=== PATIENT | female | born 1965 | race Caucasian/White ===

== ENCOUNTER 2018-10-07 11:28 | Emergency (ER) | payer OTHER ==
[2018-10-07 11:34] VITALS: BMI 32.8
--- NOTE | 2018-10-07 11:52 | PDOC ---
History of Present Illness - General Chief Complaint: Lightheaded Stated Complaint: HEADACHE/ VOMITING/ DIZZNESS Time Seen by Provider: 10/07/18 11:40 History Source: Patient Exam Limitations: No Limitations Past History - Travel Traveled outside of the country in the last 30 days: No Close contact w/someone who was outside of country & ill: No - Past Medical History Allergies/Adverse Reactions: Allergies Allergy/AdvReac Type Severity Reaction Status Date / Time amoxicillin [Amoxicillin] Allergy Severe Swelling Verified 07/28/17 20:26 Home Medications: Ambulatory Orders Albuterol 0.083% Nebulizer Emhnaz [Ventolin 0.083% Nebulizer Soln -] 1 neb NEB Q4H PRN #20 vial 07/28/17 Azithromycin [Zithromax -] 250 mg PO UTDICT #6 tab 07/28/17 Duloxetine HCl 60 mg PO ASDIR 07/28/17 Pregabalin [Lyrica -] 100 mg PO TID 07/28/17 Quetiapine Fumarate [Seroquel -] 25 mg PO HS 07/28/17 Asthma: Yes Cancer: Yes (cervical) CVA: No COPD: No - Surgical History Cardiac Surgery: No Cholecystectomy: Yes Lung Surgery: No Neurologic Surgery: No - Reproductive History (#): 2 Para: 2 - Immunization History Immunization Up to Date: Yes - Suicide/Smoking/Psychosocial Hx Smoking Status: No Smoking History: Never smoked Have you smoked in the past 12 months: No Number of Cigarettes Smoked Daily: 0 Hx Alcohol Use: No Drug/Substance Use Hx: No Substance Use Type: None Hx Substance Use Treatment: No Review of Systems - Review of Systems Able to Perform ROS?: Yes Comments:: 10/07/18 11:54 CONSTITUTIONAL: Present: generalized weakness Absent: fever, chills, diaphoresis, malaise, loss of appetite HEENT: Absent: rhinorrhea, nasal congestion, throat pain, throat swelling, difficulty swallowing, mouth swelling, ear pain, eye pain, visual Changes CARDIOVASCULAR: Absent: chest pain, loss of consciousness, palpitations, irregular heart rate, peripheral edema RESPIRATORY: Absent: cough, shortness of breath, dyspnea with exertion, orthopnea, wheezing, stridor, hemoptysis GASTROINTESTINAL: Present: abdominal pain, nausea, vomiting, diarrhea Absent: abdominal distension, constipation, melena, hematochezia GENITOURINARY: Absent: dysuria, frequency, urgency, hesitancy, hematuria, flank pain, genital pain MUSCULOSKELETAL: Absent: myalgia, arthralgia, joint swelling SKIN: Absent: rash, itching, pallor HEMATOLOGIC/IMMUNOLOGIC: Absent: easy bleeding, easy bruising, lymphadenopathy, frequent infections ENDOCRINE: Absent: unexplained weight gain, unexplained weight loss, heat intolerance, cold intolerance NEUROLOGIC: Present: headache Absent: focal weakness or paresthesias, dizziness, unsteady gait, seizure, mental status changes, bladder or bowel incontinence PSYCHIATRIC: Absent: anxiety, depression, suicidal or homicidal ideation, hallucinations. Is the patient limited [place]ican proficient: No *Physical Exam - Vital Signs Last Vital Signs Temp Pulse Resp BP Pulse Ox 98.2 F 69 17 139/82 98 10/07/18 11:30 10/07/18 11:30 10/07/18 11:30 10/07/18 11:30 10/07/18 11:30 - Physical Exam Comments: 10/07/18 11:57 GENERAL: Well developed, well nourished. Awake and alert. No acute distress. HEENT: Normocephalic, atraumatic. PERRLA, EOMI. No conjunctival pallor. Sclera are non- icteric. Moist mucous membranes. Oropharynx is clear. NECK: Supple. Full ROM. No JVD. Carotid pulses 2+ and symmetric, without bruits. No thyromegaly. No lymphadenopathy. CARDIOVASCULAR: Regular rate and rhythm. No murmurs, rubs, or gallops. Distal pulses are 2+ and symmetric. PULMONARY: No evidence of respiratory distress. Lungs clear to auscultation bilaterally. No wheezing, rales or rhonchi. ABDOMINAL: Tender abdomen to the RUQ, epigastric region, suprapubic region. Soft. Non- distended. No rebound or guarding. No organomegaly. Normoactive bowel sounds. MUSCULOSKELETAL Normal range of motion at all joints. No bony deformities or tenderness. No CVA tenderness. EXTREMITIES: No cyanosis. No clubbing. No edema. No calf tenderness. SKIN: Warm and dry. Normal capillary refill. No rashes. No jaundice. NEUROLOGICAL: Alert, awake, appropriate. Cranial nerves 2-12 intact. No deficits to light touch and temperature in face, upper extremities and lower extremities. No motor deficits in the in face, upper extremities and lower extremities. Normoreflexic in the upper and lower extremities. Normal speech. Toes are down- going bilaterally. Gait is normal without ataxia. PSYCHIATRIC: Cooperative. Good eye contact. Appropriate mood and affect. ED Treatment Course - LABORATORY CBC & Chemistry Diagram: 10/07/18 12:30 10/07/18 14:00 Medical Decision Making - Medical Decision Making 10/07/18 15:21 The patient is a 52-year-old female with past medical history of reflux, hyperlipidemia, presents to the ER today for diarrhea, vomiting, abdominal pain and headache for the past 3 days. The patient states she recently just came back from [place]. She notes that she had the diarrhea while in [place] and it has continued over the past 3 days. She states that her headache started last night. She did not take any medication for her headache. She states she usually gets migraines and this feels like a typical migraine to her. She also states that she has some crampy abdominal pain as well as epigastric pain. Denies fevers, chills, shortness of breath, chest pain, constipation, palpitations, and urinary symptoms. A/P: Traveler's diarrhea and migraine On exam pt with diffuse abdominal tenderness with out focal findings. No rebound or guarding. Pt is neurologically intact with no focal findings EKG: Rate 62 BPM, NSR. Normal intervals and axis. No acute ST-T wave changes Basic labs, urine, IVF, Reglan, benadryl, ofirmev ordered No leukocytosis or shift. H&H stable K+ 6.1 but slightly hemolyzed. Repeated K; now 4.1 Urine negative at this time. Pt reports headache and abdominal pain much improved after medication No abdominal pain on repeat exam Most likely a viral traveler's diarrhea with migraine at this time. Will recommend supportive therapy and PCP follow up DC home I discussed the physical exam findings, ancillary test results and final diagnoses with the patient. I answered all of the patient's questions. The patient was satisfied with the care received and felt comfortable with the discharge plan and treatment plan. The Patient agrees to follow up with the primary care physician/specialist within 24-72 hours. Return precautions were given. *DC/Admit/Observation/Transfer Diagnosis at time of Disposition: Traveler's diarrhea Migraine Qualifiers: Migraine type: unspecified Status migrainosus presence: without status migrainosus Intractability: not intractable Qualified Code(s): G43.909 - Migraine, unspecified, not intractable, without status migrainosus - Discharge Dispostion Disposition: HOME Condition at time of disposition: Stable Decision to Admit order: No - Referrals Referrals: Grey Price MD [Staff Physician] - - Patient Instructions Printed Discharge Instructions: DI for Diarrhea and Traveler's Diarrhea -- Adult Additional Instructions: You have diarrhea. You were also treated for a migraine today Take the Reglan as directed for nausea and headache. Avoid all dairy products until 48 hours after the vomiting/diarrhea has resolved. Eat a bland diet including apple sauce, toast, bananas, and plain rice Drink plenty of fluids including pedialyte, watered down juices and water Follow up with your primary care doctor this week Return to the ED if you develop fevers, abdominal pain, worsening vomiting, or if you have any changes in your symptoms. - Post Discharge Activity Forms/Work/School Notes: Back to Work
[2018-10-07] MEDS ORDERED: ACETAMINOPHEN 1000 MG/100 ML VIAL (NON FORMULARY) IVPB ONE (11:53)
[2018-10-07] MEDS ORDERED: METOCLOPRAMIDE HCL INJECTION 10 MG/2 ML VIAL IVPB ONE (11:53)
[2018-10-07] MEDS ORDERED: SODIUM CHLORIDE 1,000 ML IV STA (11:53)
[2018-10-07] MEDS ORDERED: ACETAMINOPHEN INJECTION 100 ML IVPB ONE (12:10)
[2018-10-07] MEDS ORDERED: METOCLOPRAMIDE HCL INJECTION 10 MG/2 ML VIAL ONE (12:10)
[2018-10-07 12:38] LABS: HEMATOCRIT 38.9 % (32.4-45.2); HEMOGLOBIN 13.4 GM/dL (10.7-15.3); LYMPH % 30.8 % (8-40); MCH 32.2 pg (25.7-33.7); MCHC 34.6 g/dl (32.0-36.0); MONO % 8.4 % (3.8-10.2); NEUT % 57.8 % (42.8-82.8); PLATELET COUNT 231 K/MM3 (134-434); RBC 4.18 M/mm3 (3.60-5.2); RDW 13.1 % (11.6-15.6); WHITE BLOOD COUNT 6.7 K/mm3 (4.0-10.0)
[2018-10-07 12:49] LABS: INR 1.03 (0.83-1.09); PROTHROMBIN TIME (PATIENT) 12.2 SEC (9.7-13.0)
[2018-10-07 12:53] LABS: EPI CELLS 1.4 /HPF (0-5/HPF); HYALINE CASTS 1 /lpf (0-8); PH,URINE 7.5 (5.0-8.0); URINE APPEARANCE Error; URINE BACTERIA 19.5 /hpf (NEGATIVE); URINE BILIRUBIN NEGATIVE (NEGATIVE); URINE COLOR YELLOW; URINE GLUCOSE (UA) NEGATIVE (NEGATIVE); URINE KETONE NEGATIVE (NEGATIVE); URINE LEUK ESTERASE NEGATIVE (NEGATIVE); URINE NITRITE NEGATIVE (NEGATIVE); URINE PROTEIN NEGATIVE (NEGATIVE); URINE RBC 10 /hpf (0-4); URINE UROBILINOGEN 0.2 mg/dL (0.2-1.0); URINE WBC 1 /hpf (0-5)
[2018-10-07 13:11] LABS: ALBUMIN 3.6 g/dl (3.4-5.0); BILIRUBIN,TOTAL 0.5 mg/dL (0.2-1); BLOOD UREA NITROGEN 19.8 mg/dL (7-18); CALCIUM 9.2 mg/dL (8.5-10.1); CREATININE 0.9 mg/dL (0.55-1.3); TOT PROT 7.4 g/dl (6.4-8.2)
[2018-10-07 13:16] LABS: POTASSIUM 6.1 mmol/L (3.5-5.1)
[2018-10-07 16:05] VITALS: BP 130/75; PULSE 65; TEMP 98
--- NOTE | 2018-10-08 11:33 | EKG ---
Test Reason : Blood Pressure : / mmHG Vent. Rate : 062 BPM Atrial Rate : 062 BPM P-R Int : 210 ms QRS Dur : 078 ms QT Int : 418 ms P-R-T Axes : 055 051 065 degrees QTc Int : 424 ms SINUS RHYTHM WITH 1ST DEGREE A-V BLOCK OTHERWISE NORMAL ECG WHEN COMPARED WITH ECG OF 05-NOV-2011 08:30, NO SIGNIFICANT CHANGE WAS FOUND Confirmed by ABDIAS BENJAMIN, JONAH ([id number]) on 10/08/2018 11:33:17 AM Referred By: Confirmed By:JONAH CALERO MD
== END 2018-10-07 15:55 | disposition home or self-care (01) ==
LOC: JER 11:28
PROC: 3E033NZ Introduction of Analgesics, Hypnotics, Sedatives into Peripheral Vein, Percutaneous Approach (ICD-10-PCS; principal; 2018-10-07)
PROC: 3E033GC Introduction of Other Therapeutic Substance into Peripheral Vein, Percutaneous Approach (ICD-10-PCS; 2018-10-07)
PROC: 3E0337Z Introduction of Electrolytic and Water Balance Substance into Peripheral Vein, Percutaneous Approach (ICD-10-PCS; 2018-10-07)
DX: G43.909 Migraine, unspecified, not intractable, without status migrainosus (principal); A08.8 Other specified intestinal infections; K21.9 Gastro-esophageal reflux disease without esophagitis; E78.5 Hyperlipidemia, unspecified
CPT/HCPCS: 36415; 80053; 81003; 82550; 82553; 83690; 84132; 84484; 84703; 85025; 85610; 87086; 93005; 93010; 99284-25; J0131; J7030

== ENCOUNTER 2019-01-28 20:45 | Emergency (ER) | payer OTHER ==
[2019-01-28 20:49] VITALS: BMI 31.1
--- NOTE | 2019-01-28 22:33 | PDOC ---
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 States the she has been associated dizziness lightheadedness, especially on ambulation, and headache. Patient states the pain in the epigastrium is a squeezing, 10/10. States she has been having a lot of nausea however had soup today and it stayed down. Prior to today had been having many episodes of vomiting and diarrhea. States she feels dry. States symptoms started with a cough x 1 week but cough now resolved PMD: Dr. Huff PMHX: As above PSOCHX: neg cig, drug, etoh ALL: Amoxicillin - swelling GENERAL/CONSTITUTIONAL: [No fever or chills. No weakness. No weight change.] HEAD, EYES, EARS, NOSE AND THROAT: [No change in vision. No ear pain or discharge. No sore throat.] CARDIOVASCULAR: [No chest pain or shortness of breath.] RESPIRATORY: [No cough, wheezing, or hemoptysis.] GASTROINTESTINAL: [(+) nausea, vomiting, diarrhea (-) constipation. No rectal bleeding.] GENITOURINARY: [No dysuria, frequency, or change in urination.] MUSCULOSKELETAL: [No joint or muscle swelling or pain. No neck or back pain.] SKIN AND BREASTS: [No rash or easy bruising.] NEUROLOGIC: [No headache, vertigo, loss of consciousness, or loss of sensation.] PSYCHIATRIC: [No depression or anxiety.] ENDOCRINE: [No increased thirst. No abnormal weight change.] HEMATOLOGIC/LYMPHATIC: [No anemia, easy bleeding, or history of blood clots.] ALLERGIC/IMMUNOLOGIC: [No hives or skin allergy. No latex allergy.] GENERAL: [The patient is awake, alert, and fully oriented, in moderate distress. ] HEAD: [Normal with no signs of trauma.] EYES: [Pupils equal, round and reactive to light, extraocular movements intact, sclera anicteric, conjunctiva clear.] ENT: [Ears normal, nares patent, oropharynx clear without exudates. Moist mucous membranes.] NECK: [Normal range of motion, supple without lymphadenopathy, JVD, or masses.] LUNGS: [Breath sounds equal, clear to auscultation bilaterally. No wheezes, and no crackles.] HEART: [Regular rate and rhythm, normal S1 and S2 without murmur, rub.] ABDOMEN: [Soft, (+) generalized tenderness but most tender in the right upper quadrant, normoactive bowel sounds. No guarding, no rebound. No masses.] EXTREMITIES: [Normal range of motion, no edema. No clubbing or cyanosis. No cords, erythema, or tenderness.] NEUROLOGICAL: [Cranial nerves II through XII grossly intact. Normal speech, normal gait.] PSYCH: [Normal mood, normal affect.] SKIN: [Warm, Dry, normal turgor, no rashes or lesions noted.] Past History - Past Medical History Allergies/Adverse Reactions: Allergies Allergy/AdvReac Type Severity Reaction Status Date / Time amoxicillin [Amoxicillin] Allergy Severe Swelling Verified 01/28/19 20:49 Home Medications: Ambulatory Orders Atorvastatin Calcium 10 mg PO HS 01/28/19 Cholecalciferol (Vitamin D3) [Vitamin D3 -] 0 unit PO DAILY 01/28/19 Pantoprazole Sodium [Protonix] 40 mg PO DAILY 01/28/19 Venlafaxine HCl ER [Effexor Xr -] 75 mg PO DAILY 01/28/19 Asthma: Yes Cancer: Yes (cervical) CVA: No COPD: No - Surgical History Cardiac Surgery: No Cholecystectomy: Yes Lung Surgery: No Neurologic Surgery: No - Reproductive History (#): 2 Para: 2 - Immunization History Immunization Up to Date: Yes - Psycho Social/Smoking Cessation Hx Smoking Status: No Smoking History: Never smoked Have you smoked in the past 12 months: No Number of Cigarettes Smoked Daily: 0 Hx Alcohol Use: No Drug/Substance Use Hx: No Substance Use Type: None Hx Substance Use Treatment: No *Physical Exam - Vital Signs Last Vital Signs Temp Pulse Resp BP Pulse Ox 97.9 F 76 18 156/75 99 01/28/19 20:47 01/28/19 20:47 01/28/19 20:47 01/28/19 20:47 01/28/19 20:47 ED Treatment Course - LABORATORY CBC & Chemistry Diagram: 01/28/19 23:10 01/28/19 23:10 Medical Decision Making - Medical Decision Making 01/28/19 22:21 Patient is 53 with h/o Asthma, [place] cervix, with total abdominal hysterectomy/ oophorectomy, 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 States the she has been associated dizziness lightheadedness, especially on ambulation, and headache. Patient states the pain in the epigastrium is a squeezing, 10/10. States she has been having a lot of nausea however had soup today and it stayed down. Prior to today had been having many episodes of vomiting and diarrhea. States she feels dry. States symptoms started with a cough x 1 week but cough now resolved. DDX: Gastroenteritis, Labs IV fluids, morphine Ultrasound right upper quadrant Will consider CT scan abdomen pelvis if no acute findings on ultrasound. Endorsed to the overnight team pending results of ultrasound and disposition 0130 patient continues to be in pain given morphine 4 mg IV Discharge - Discharge Information Problems reviewed: Yes Clinical Impression/Diagnosis: Nausea vomiting and diarrhea Abdominal pain Qualifiers: Abdominal location: generalized Qualified Code(s): R10.84 - Generalized abdominal pain - Follow up/Referral Referrals: Ash Huff MD [Primary Care Provider] - - Patient Discharge Instructions - Post Discharge Activity
[2019-01-28] MEDS ORDERED: FAMOTIDINE 20 MG/50 ML IVPB 20 MG/50 ML MG IVPB ONE ×2 (22:47→23:01)
[2019-01-28] MEDS ORDERED: ONDANSETRON 4 MG/2 ML VIAL IVPUSH ONE (22:47)
[2019-01-28] MEDS ORDERED: morphine CARPU-JECT 2 MG/1 ML DISP.SYRIN IVPUSH ONE (22:47)
[2019-01-28] MEDS ORDERED: SODIUM CHLORIDE 0.9% 500 ML INFUS.BAG IV ONE (22:47)
[2019-01-28] MEDS ORDERED: MORPHINE SULFATE 2 MG/ML VIAL ONE (23:01)
[2019-01-28] MEDS ORDERED: ONDANSETRON 4 MG/2 ML VIAL ONE (23:01)
[2019-01-28 23:14] LABS: HYALINE CASTS 1 /lpf (0-8); URINE APPEARANCE CLEAR; URINE BACTERIA 3.1 /hpf (NEGATIVE); URINE BILIRUBIN NEGATIVE (NEGATIVE); URINE COLOR YELLOW; URINE GLUCOSE (UA) NEGATIVE (NEGATIVE); URINE KETONE NEGATIVE (NEGATIVE); URINE LEUK ESTERASE NEGATIVE (NEGATIVE); URINE NITRITE NEGATIVE (NEGATIVE); URINE PROTEIN NEGATIVE (NEGATIVE); URINE RBC 20 /hpf (0-4); URINE WBC 1 /hpf (0-5)
[2019-01-28 23:18] LABS: EOS % 1.7 % (0-4.5); HEMATOCRIT 41.3 % (32.4-45.2); HEMOGLOBIN 13.9 GM/dL (10.7-15.3); LYMPH % 28.7 % (8-40); MCH 31.5 pg (25.7-33.7); MCHC 33.8 g/dl (32.0-36.0); MEAN CELL VOLUME 93.2 fl (80-96); MEAN PLT VOLUME 8.4 fl (7.5-11.1); MONO % 11.1 % (3.8-10.2); NEUT % 57.5 % (42.8-82.8); PLATELET COUNT 280 K/MM3 (134-434); RBC 4.43 M/mm3 (3.60-5.2); RDW 13.4 % (11.6-15.6); WHITE BLOOD COUNT 6.9 K/mm3 (4.0-10.0)
[2019-01-28 23:41] LABS: BLOOD UREA NITROGEN 18.8 mg/dL (7-18); GLUCOSE,RANDOM 122 mg/dL (74-106); SODIUM 141 mmol/L (136-145)
[2019-01-28 23:42] LABS: ALBUMIN 3.6 g/dl (3.4-5.0); BILIRUBIN,TOTAL 0.6 mg/dL (0.2-1); CALCIUM 9.2 mg/dL (8.5-10.1); CHLORIDE 106 mmol/L (98-107); CO2 26 mmol/L (21-32); POTASSIUM 4.2 mmol/L (3.5-5.1); TOT PROT 7.6 g/dl (6.4-8.2)
[2019-01-28 23:43] LABS: ALK PHOS 216 U/L (45-117); SGOT/AST 64 U/L (15-37); SGPT/ALT 94 U/L (13-61)
[2019-01-28 23:47] LABS: AMYLASE 65 U/L (25-115); ANION GAP 8 MMOL/L (8-16); LIPASE 134 U/L (73-393)
[2019-01-29] MEDS ORDERED: morphine CARPU-JECT 4 MG/1 ML DISP.SYRIN IVPUSH ONE (02:25)
[2019-01-29] MEDS ORDERED: morphine SULFATE 4 MG/ML VIAL ONE (03:04)
[2019-01-29] MEDS ORDERED: ACETAMINOPHEN INJECTION 100 ML IVPB ONE (03:07)
[2019-01-29] MEDS ORDERED: ACETAMINOPHEN 1000 MG/100 ML VIAL (NON FORMULARY) IVPB ONE (03:07)
--- NOTE | 2019-01-29 06:02 | PDOC ---
*Physical Exam - Vital Signs Last Vital Signs Temp Pulse Resp BP Pulse Ox 97.9 F 76 18 156/75 99 01/28/19 20:47 01/28/19 20:47 01/28/19 20:47 01/28/19 20:47 01/28/19 20:47 ED Treatment Course - LABORATORY CBC & Chemistry Diagram: 01/28/19 23:10 01/28/19 23:10 - ADDITIONAL ORDERS Additional order review: Laboratory Results 01/28/19 01/28/19 23:10 23:00 Sodium 141 Potassium 4.2 Chloride 106 Carbon Dioxide 26 Anion Gap 8 BUN 18.8 H Creatinine 1.0 Est GFR (CKD-EPI)AfAm 74.49 Est GFR (CKD-EPI)NonAf 64.27 Random Glucose 122 H Calcium 9.2 Total Bilirubin 0.6 AST 64 H ALT 94 H Alkaline Phosphatase 216 H Creatine Kinase 143 Troponin I < 0.02 Total Protein 7.6 Albumin 3.6 Total Amylase 65 Lipase 134 Urine Color Yellow Urine Appearance Clear Urine pH 7.0 Ur Specific Gore 1.022 Urine Protein Negative Urine Glucose (UA) Negative Urine Ketones Negative Urine Blood 1+ H Urine Nitrite Negative Urine Bilirubin Negative Urine Urobilinogen 2.0 H Ur Leukocyte Esterase Negative Urine WBC (Auto) 1 Urine RBC (Auto) 20 Urine Casts (Auto) 1 U Epithel Cells (Auto) 1.0 Urine Bacteria (Auto) 3.1 01/28/19 23:10 RBC 4.43 MCV 93.2 MCHC 33.8 RDW 13.4 MPV 8.4 Neutrophils % 57.5 Lymphocytes % 28.7 Monocytes % 11.1 H Eosinophils % 1.7 Basophils % 1.0 - RADIOLOGY Radiology Studies Ordered: Category Date Time Status ABDOMEN & PELVIS CT WITH CONTR [CT] Stat CT Scan 01/29/19 02:41 Taken - Medications Given in the ED: ED Medications Discontinued Medications Generic Name Dose Route Start Last Admin Trade Name Freq PRN Reason Stop Dose Admin Acetaminophen 1,000 mg 01/29/19 03:07 01/29/19 03:15 Ofirmev Injection - IVPB 01/29/19 03:08 1,000 mg ONCE ONE Administration Famotidine/Sodium Chloride 20 mg in 50 mls @ 100 mls/hr 01/28/19 22:47 23:18 Pepcid 20 Mg Premixed Ivpb - IVPB 01/28/19 23:16 100 mls/hr ONCE ONE Administration Morphine Sulfate 2 mg 01/28/19 22:47 01/28/19 23:18 Morphine Injection - IVPUSH 01/28/19 22:48 2 mg ONCE ONE Administration Morphine Sulfate 4 mg 01/29/19 02:25 01/29/19 03:15 Morphine Injection - IVPUSH 01/29/19 02:26 Not Given ONCE ONE Ondansetron HCl 4 mg 01/28/19 22:47 01/28/19 23:18 Zofran Injection IVPUSH 01/28/19 22:48 4 mg ONCE ONE Administration Sodium Chloride 1,000 ml 01/28/19 22:47 01/28/19 23:18 Normal Saline - IV 01/28/19 22:48 1,000 ml ONCE ONE Administration Medical Decision Making - Medical Decision Making 01/29/19 06:01 Pt signed out to me at 2:30 AM Sono result finally returned: Patient Name: EZ MCKEON THIS IS A PRELIMINARY REPORT FROM [facility] DATE OF SERVICE: 2019-01-29 02:04:32 IMAGES: 45 EXAM: ABDOMEN US -LIMITED , right upper quadrant and limited abdominal duplex HISTORY: Right upper quadrant pain COMPARISON: None. FINDINGS: Right upper quadrant ultrasound:The liver is mildly fatty mildly enlarged at 17.8 cm, without mass or biliary duct dilation. Status post cholecystectomy. The CBD is mildly dilated and [id number] millimeters in diameter. No CBD stone identified. Right kidney measures 12.4centimeters in length and is unremarkable. The visualized aorta and IVC are normal. Pancreas is partially obscured, but appears normal. Abdominal duplex: The main portal vein demonstrates normal hepatopedal flow. IMPRESSION: Mildly enlarged fatty liver. CBD dilation may be secondary to postoperative stricture. 01/29/19 06:01 CT scan result still pending 01/29/19 06:03 Patient Name: EZ MCKEON THIS IS A PRELIMINARY REPORT FROM [facility] DATE OF SERVICE: 2019-01-29 03:51:52 IMAGES: [id number] EXAM: ABDOMEN \T\ PELVIS CT WITH CONTR HISTORY: Abdominal pain COMPARISON: None. FINDINGS: Lung bases are clear. The visualized cardiac chambers are normal size and configuration. Status post cholecystectomy with minimal biliary duct dilation. There is severe atrophy of the left kidney, without hydronephrosis. The kidneys do function and renal artery stenosis is considered. Normal pancreas, spleen, adrenal glands and right. The stomach and abdominal small and large bowel are normal. There is no aortic aneurysm. There is no significant retroperitoneal lymphadenopathy. The pelvic small and large bowel are normal. The appendix is normal. Status post hysterectomy. Slightly irregular soft tissue seen in the posterior left pelvis near the sciatic foramen, possibly postoperative scarring.. Urinary bladder is unremarkable. There is no pelvic free fluid. No discrete pelvic lymphadenopathy is identified. IMPRESSION: Chronic severe left renal atrophy may be due to renal artery stenosis. Posterior left pelvic irregular soft tissue, at the entrance to the sciatic foramen 01/29/19 19:50 Pt is feeling slightly better; she has been narely eating. I encouraged her to eat and take probiotics and to start with bland non fatty foods. She is stable for d/c; hus band is at her bedside. Discharge - Discharge Information Problems reviewed: Yes Clinical Impression/Diagnosis: Nausea vomiting and diarrhea Abdominal pain Qualifiers: Abdominal location: generalized Qualified Code(s): R10.84 - Generalized abdominal pain - Follow up/Referral Referrals: Ash Huff MD [Primary Care Provider] - - Patient Discharge Instructions - Post Discharge Activity
[2019-01-29] MEDS ORDERED: MAG HYDROX/AL HYDROX/SIMETH 30 ML UNIT-DOSE CUP PO ONE (06:22)
[2019-01-29] MEDS ORDERED: DICYCLOMINE HCL 20 MG TABLET PO ONE (06:22)
[2019-01-29] MEDS ORDERED: DICYCLOMINE HCL 10 MG CAPSULE ONE (06:28)
[2019-01-29] MEDS ORDERED: MAG HYDROX/AL HYDROX/SIMETH 30 ML UNIT-DOSE CUP ONE (06:29)
[2019-01-29 06:36] VITALS: BP 128/57; PULSE 62; TEMP 98
--- NOTE | 2019-01-29 18:32 | EKG ---
Test Reason : Blood Pressure : / mmHG Vent. Rate : 068 BPM Atrial Rate : 068 BPM P-R Int : 192 ms QRS Dur : 076 ms QT Int : 422 ms P-R-T Axes : 043 051 051 degrees QTc Int : 448 ms NORMAL SINUS RHYTHM NORMAL ECG WHEN COMPARED WITH ECG OF 07-OCT-2018 12:51, NO SIGNIFICANT CHANGE WAS FOUND Confirmed by ARNOLDO TINEO MD ([id number]) on 01/29/2019 6:32:13 PM Referred By: Confirmed By:ARNOLDO TINEO MD
== END 2019-01-29 07:07 | disposition home or self-care (01) ==
LOC: JER 20:45
PROC: 3E033GC Introduction of Other Therapeutic Substance into Peripheral Vein, Percutaneous Approach (ICD-10-PCS; principal; 2019-01-28)
PROC: 3E033GC Introduction of Other Therapeutic Substance into Peripheral Vein, Percutaneous Approach (ICD-10-PCS; 2019-01-28)
PROC: 3E033NZ Introduction of Analgesics, Hypnotics, Sedatives into Peripheral Vein, Percutaneous Approach (ICD-10-PCS; 2019-01-28)
PROC: 3E033NZ Introduction of Analgesics, Hypnotics, Sedatives into Peripheral Vein, Percutaneous Approach (ICD-10-PCS; 2019-01-28)
DX: A09 Infectious gastroenteritis and colitis, unspecified (principal); R10.84 Generalized abdominal pain; R11.2 Nausea with vomiting, unspecified; R19.7 Diarrhea, unspecified; Z85.41 Personal history of malignant neoplasm of cervix uteri; Z90.710 Acquired absence of both cervix and uterus; Z90.722 Acquired absence of ovaries, bilateral; Z88.0 Allergy status to penicillin; Z87.09 Personal history of other diseases of the respiratory system
CPT/HCPCS: 36415; 74177-TC; 76705-TC; 80053; 81003; 82150; 82550; 83690; 84484; 85025; 93005; 93010; 99284-25; J0131; Q9967